=== PATIENT | male | born 1950 | race Caucasian/White ===

== ENCOUNTER 2025-04-25 17:55 | Emergency (ER) | payer MEDICARE, BC ==
[~2025-04-25] VITALS: Ht 175.3 cm; Wt 65.8 kg
[2025-04-25 17:59] VITALS: BP 112/77
[2025-04-25 18:37] LABS: PLATELET COUNT (AUTO) 195 K/uL (152-348); RED BLOOD CELL COUNT(AUTO) 4.62 MIL/uL (4.06-5.63); RED CELL DISTRIBUTION WIDTH 13.9 % (12.1-16.2); WHITE BLOOD COUNT (AUTO) 4.5 K/uL (3.6-10.2)
[2025-04-25 18:47] LABS: CREATININE 0.6 mg/dL (0.6-1.3); SODIUM SERUM 135 mmol/L (136-145); UREA NITROGEN, BLOOD 22 mg/dL (7-18)
[2025-04-25 18:52] LABS: ASPARTATE AMINOTRANSFERASE 60 U/L (15-37); TOTAL PROTEIN, SERUM 6.7 g/dL (6.4-8.2)
[2025-04-25 19:02] LABS: BAND % (MANUAL) 1 % (0-10); EOSINOPHILS % (MANUAL) 4 % (0-8); LYMPHOCYTES % (MANUAL) 19 % (20-40); MONOCYTES % (MANUAL) 12 % (2-10); NEUTROPHILS % (MANUAL) 64 % (42-75)
[2025-04-25 19:03] LABS: PLATELET ESTIMATE ADEQUATE
[2025-04-25 20:10] VITALS: BP 112/77; TEMP 98; O2SAT 97
== END 2025-04-25 20:10 | disposition home or self-care (01) ==
LOC: ER 17:55
DX: S80.821A Blister (nonthermal), right lower leg, initial encounter (principal); I11.9 Hypertensive heart disease without heart failure; I35.0 Nonrheumatic aortic (valve) stenosis; G89.29 Other chronic pain; G61.81 Chronic inflammatory demyelinating polyneuritis; Z86.79 Personal history of other diseases of the circulatory system; Z98.890 Other specified postprocedural states; X58.XXXA Exposure to other specified factors, initial encounter; Y93.89 Activity, other specified; Y92.89 Other specified places as the place of occurrence of the external cause; Y99.9 Unspecified external cause status
CPT/HCPCS: 70030-TC; 71045; 85025; 85730; A4606; A4663